=== PATIENT | male | born 1985 | race Caucasian/White ===

== ENCOUNTER → 2024-12-08 | Emergency (ER) | payer OTHER ==
[~2024-12-08] VITALS: Ht 190.5 cm; Wt 90.9 kg
[2024-12-08 22:30] VITALS: BP 133/84; PULSE 101; RESP 18; TEMP 97.7; O2SAT 99
[2024-12-08] MEDS: ALBUTEROL SULFATE HFA 90 MCG/PUFF 8 GM INHALER IH ONE (22:46)
== END | disposition still patient (30) ==
LOC: EMS 21:48
DX: J45.909 Unspecified asthma, uncomplicated (principal)
CPT/HCPCS: 99283; 94640; J3535